=== PATIENT | female | born 1990 ===

== ENCOUNTER 2023-06-08 10:15 | Inpatient (IN) | payer BC ==
[2023-06-08 10:52] VITALS: BMI 27.7
[2023-06-08] MEDS ORDERED: hydrALAZINE 20 MG/ML VIAL SLOW IVP PRN ×2 (12:15→15:31)
[2023-06-08] MEDS ORDERED: Carboprost 250 MCG/ML AMP IM PRN (15:31)
[2023-06-08] MEDS ORDERED: fentaNYL 50 mcg/mL 1 mL Vial SLOW IVP PRN (15:31)
[2023-06-08] MEDS ORDERED: Docusate 100 MG CAP PO PRN (15:31)
[2023-06-08] MEDS ORDERED: Methylergonovine 0.2 MG/ML VIAL IM PRN (15:31)
[2023-06-08] MEDS ORDERED: Misoprostol 200 MCG TAB PR PRN (15:31)
[2023-06-08] MEDS ORDERED: Tranexamic Acid 1,000 MG/10 ML VIAL IVP PRN (15:31)
[2023-06-08] MEDS ORDERED: Promethazine HCl 25 MG/ML VIAL IM PRN ×2 (15:31→17:46)
[2023-06-08] MEDS ORDERED: Lidocaine 1% (PF) 30 ML VIAL SC PRN (15:31)
[2023-06-08] MEDS ORDERED: Diphenoxylate HCl/Atropine Tablet PO PRN (15:31)
[2023-06-08] MEDS ORDERED: Ondansetron PF 4 MG/2 ML Vial IVP PRN ×2 (15:31→17:46)
[2023-06-08] MEDS ORDERED: Oxytocin 30 units/NS 500 ML 500 ML IV SCH ×2 (15:45)
[2023-06-08 15:56] LABS: Hematocrit 33.4 % (34.9-44.5); Mean Corpuscular HGB CONC 35.9 g/dL (32.0-36.0); Mean Corpuscular Hemoglobin 33.5 pg (27.0-33.0); Mean Corpuscular Volume 93.3 fl (81.6-98.3); Mean Platelet Volume 11.5 fl (7.4-10.4); Platelet Count 142 10x3/uL (150-450); RBC Distribution Width 14.5 % (11.5-14.5); Red Blood Cell (RBC) Count 3.58 10x6/uL (3.90-5.03); White Blood Cell (WBC) Count 8.8 10x3/uL (3.5-10.5)
[2023-06-08 16:24] LABS: Syphilis Antibody Nonreactive (Nonreactive); Syphilis Antibody Index 0.07 S/CO (<1.00 Non-Reactive)
[2023-06-08 16:26] LABS: HBSAg Index 0.19 S/CO (0-0.99); Hep B Surf Ag - L&D Non-Reactive S/CO (NonReactive)
[2023-06-08] MEDS: Lactated Ringer's 1,000 ML IV SCH (16:50)
[2023-06-08] MEDS: fentaNYL/Ropivacaine Epidural 100 ML ONE (17:34)
[2023-06-08] MEDS ORDERED: Moisturizing Cream (Eucerin) 113 GM JAR TOP PRN (17:46)
[2023-06-08] MEDS ORDERED: Acetaminophen 325 MG TAB PO PRN (17:46)
[2023-06-08] MEDS ORDERED: diphenhydrAMINE 50 MG/ML VIAL IVP PRN (17:46)
[2023-06-08] MEDS ORDERED: ePHEDrine Sulfate 50 MG/10 ML VIAL SLOW IVP PRN (17:46)
[2023-06-08] MEDS ORDERED: Lactated Ringer's 500 ML IV PRN (17:46)
[2023-06-08] MEDS ORDERED: Naloxone HCl 0.4 mg/ml Vial IVP PRN ×2 (17:46)
[2023-06-08] MEDS ORDERED: Communication Order-Pharmacy FS SCH (18:00)
[2023-06-08] MEDS ORDERED: fentaNYL 2 mcg/Ropivacaine 0.2% Epidural 100 ML CADD EPIDURAL SCH (18:00)
[2023-06-09] MEDS ORDERED: Ondansetron PF 4 MG/2 ML Vial IVP PRN (00:08)
[2023-06-09] MEDS ORDERED: Lanolin Ointment 7 GM TUBE TOP PRN (00:08)
[2023-06-09] MEDS ORDERED: Bisacodyl 10 MG SUPP PR PRN (00:08)
[2023-06-09] MEDS ORDERED: traMADol HCl 50 MG TAB PO PRN (00:08)
[2023-06-09] MEDS ORDERED: Preparation H Ointment 28 GM TUBE PR PRN (00:08)
[2023-06-09] MEDS ORDERED: hydrALAZINE 20 MG/ML VIAL SLOW IVP PRN (00:08)
[2023-06-09] MEDS: Ibuprofen 800 MG TAB PO SCH ×2 (01:32→09:03)
[2023-06-09] MEDS: Acetaminophen 500 MG TAB PO SCH ×2 (03:37→04:26)
[2023-06-09] MEDS: Benzocaine-Menthol 82.5 ML CAN TOP PRN (03:38)
[2023-06-09] MEDS: Boostrix 0.5 ML (Tdap) VIAL (>/=7 yrs of age) IM ONE (07:07)
[2023-06-09] MEDS: Ferrous Sulfate 325 MG TAB PO SCH (07:07)
[2023-06-09] MEDS: Prenatal Vitamin 1 TAB PO SCH (09:02)
[2023-06-09] MEDS: Docusate 100 MG CAP PO SCH (09:03)
[2023-06-10 07:25] VITALS: BP 117/56; TEMP 97.8
[2023-06-10] MEDS: Milk Of Magnesia 30 ML UDCUP PO PRN (08:32)
== END 2023-06-10 15:45 | disposition home or self-care (01) | DRG 768 ==
LOC: CSHLD/OP 10:15 → CSHLD 15:00 → CSHPP 06-09 02:10
PROVIDERS: ADMIT Student in an Organized Health Care Education/Training Program; ATTEND Student in an Organized Health Care Education/Training Program
PROC: 10E0XZZ Delivery of Products of Conception, External Approach (ICD-10-PCS; principal; 2023-06-09)
PROC: 0DQP0ZZ Repair Rectum, Open Approach (ICD-10-PCS; 2023-06-09)
DX: O70.3 Fourth degree perineal laceration during delivery (principal); Z37.0 Single live birth; Z3A.39 39 weeks gestation of pregnancy; Z79.899 Other long term (current) drug therapy
CPT/HCPCS: 36415; 51702; 85027; 86780; 86850; 86900; 86901; 87340; 99285; J7120